=== PATIENT | male | born 1985 | race Hispanic/Latino ===

== ENCOUNTER 2017-08-06 02:47 | Emergency (ER) | payer BC ==
[2017-08-06] MEDS ORDERED: Bacitracin Zinc 1 Packet ONE (05:27)
[2017-08-06] MEDS ORDERED: Adacel (T-DAP) 0.5 ML VIAL ONE (05:33)
== END 2017-08-06 05:56 | disposition home or self-care (01) ==
LOC: ERS 02:47
DX: S01.312A Laceration without foreign body of left ear, initial encounter (principal); F17.210 Nicotine dependence, cigarettes, uncomplicated; Y04.0XXA Assault by unarmed brawl or fight, initial encounter
CPT/HCPCS: 12014; 90471; 90715